=== PATIENT | male | born 1945 | race Caucasian/White ===

== ENCOUNTER → 2017-01-24 | Outpatient (CLI) | payer MEDICARE ==
[~2017-01-24] MED LIST: AMLO10TA2 PO; ASPI32ECTA PO; ATEN50TA2 PO; BENI40TA7 PO; CITA20TA4 PO; CLONI1TA PO; FLOM5CAP PO; GLIM2TAB PO; LISI-538 PO; MEGA1CAP3 PO; METF1000 PO; MULT1TAB11 PO; PLAV75TA38 PO; PRAV40TA2 PO
== END ==
LOC: M LAB 12:02
PROVIDERS: ATTEND Internal Medicine Cardiovascular Disease
DX: E78.5 Hyperlipidemia, unspecified (principal); E11.9 Type 2 diabetes mellitus without complications; N52.9 Male erectile dysfunction, unspecified; R94.31 Abnormal electrocardiogram [ECG] [EKG]

== ENCOUNTER → 2017-01-24 | Outpatient (CLI) | payer MEDICARE ==
[2017-01-24 12:39] LABS: MEAN CORPUSCULAR HEMOGLOBIN 31.8 pg (27.0-33.0); MEAN CORPUSCULAR HGB CONC 34.5 g/dl (32.0-36.5); MEAN CORPUSCULAR VOLUME 92.4 fl (80.0-96.0); RED CELL DISTRIBUTION WIDTH 13.6 % (11.5-14.5); WHITE BLOOD COUNT 6.9 K/mm3 (4.0-10.0)
[2017-01-24 12:45] LABS: INR 1.01
[2017-01-24 13:10] LABS: ANION GAP 9 MEQ/L (8-16); BLOOD UREA NITROGEN 21 MG/DL (7-18); CARBON DIOXIDE LEVEL 29 MEQ/L (21-32); CHLORIDE LEVEL 102 MEQ/L (98-107); CREATININE FOR GFR 1.11 MG/DL (0.70-1.30); GLOMERULAR FILTRATION RATE > 60.0 (>42); GLUCOSE, FASTING 150 MG/DL (83-110); POTASSIUM SERUM 4.4 MEQ/L (3.5-5.1); SODIUM LEVEL 140 MEQ/L (136-145)
--- NOTE | 2017-01-24 15:15 | REP ---
Chest two views HISTORY: Erectile dysfunction Comparison: 08/12/2016 A calcified granuloma is present in the right upper lobe. The left lung is clear. The heart is normal in size. The pulmonary vasculature is normal in appearance. The bony structure is intact. IMPRESSION: No acute disease. Signed by Neo Ortega MD 01/24/2017 03:07 P
--- NOTE | 2017-01-25 00:07 | ECGEPIP ---
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
== END ==
LOC: M LAB 11:55
PROVIDERS: ATTEND Urology
DX: N52.9 Male erectile dysfunction, unspecified (principal); R94.31 Abnormal electrocardiogram [ECG] [EKG]

== ENCOUNTER → 2017-02-20 | Day surgery (SDC) | payer MEDICARE ==
[~2017-02-20] VITALS: Ht 177.8 cm; Wt 108.9 kg
[~2017-02-20] MED LIST changes: +BACITRACIN OINT 30GM As Ordered ONE; +BACT800T5 PO; +BACTRIM 160MG/800MG DS TAB PO SCH; +BACTRIM IV 160MG-800MG/10ML VIAL (S0039) XX ONE; +GENTAMICIN 100 MG in APPROPRIATE DILUENT 1 EA IV ONE; +JANU100T PO; +KETOROLAC 60 MG/2 ML VIAL (J1885) As Ordered ONE; +LIDOCAINE 2% INJ 100 MG/5 ML SDV (FOR ANES.) As Ordered ONE; +LR 1,000 ML IV ONE; +LR 1,000 ML IV SCH; +METOCLOPRAMIDE INJ 10MG/2ML VIAL (J2765) IV PRN; +MIDAZOLAM INJ 2 MG/2 ML VIAL (J2250) As Ordered ONE; +ONDANSETRON 4MG/2ML VIAL (J2405) As Ordered ONE; +ONDANSETRON 4MG/2ML VIAL (J2405) IV PRN; +PERCOCET 5MG/325MG TAB PO PRN; +PERCOCET PO; +PHENYLephrine HCL 500 MCG/5 ML (100MCG/ML) SYRINGE (J2370) As Ordered ONE; +PROPOFOL 200 MG/20 ML VIAL As Ordered ONE; +VANCOMYCIN HCL 1,000 MG, VIAL MATE ADAPTER 1 EACH in D5W 250 ML IV ONE; +dexameTHASONE 4 MG/ML 1ML VIAL (J1100) As Ordered ONE; +ePHEDrine SULFATE 25 MG/5 ML(5MG/ML) SYRINGE As Ordered ONE; +fentaNYL 100 MCG/2 ML INJECTION (J3010) IV PRN; +fentaNYL 250 MCG/5 ML INJECTION (J3010) As Ordered ONE
[2017-02-20 18:35] VITALS: BP 147/70
--- NOTE | 2017-02-21 12:59 | RO ---
DATE OF PROCEDURE: 02/20/2017 PREOPERATIVE DIAGNOSIS: Erectile dysfunction. POSTOPERATIVE DIAGNOSIS: Erectile dysfunction. SURGERY PERFORMED: Inflatable penile implant prosthesis placement, Coloplast at 20 cm in length plus 2 cm rear tip bilaterally with a cloverleaf reservoir of 70 mL. SURGEON: Neftaly Dhillon MD USABILITY STRATEGIST: None. ANESTHESIA: General. COMPLICATIONS: None. ESTIMATED BLOOD LOSS: N/A. HISTORY OF PRESENT ILLNESS: This is a 71-year-old male patient that has severe erectile dysfunction and has consented inflatable penile implant placement. DESCRIPTION OF PROCEDURE: With the patient under general anesthesia in supine position after prepping and draping the area of concern which included the entire genitalia and abdomen. We started by placing the Holcomb catheter, 16 Serbian, and inflated the balloon to 10 mL to drain the bladder. We then proceeded to do an incision in the penoscrotal mid bandar for about 5 cm in length. Through this incision we opened the corpora cavernosa on the left after putting two stitches of Vicryl #2-0 parallel to each other, parallel to the urethra on both sides. We cut in the middle of both stitches on the right side in the corpora cavernosa and on the left side in the corpora cavernosa for a length of about 2 cm in length. We then proceeded to actively dilate with dilators the corpora cavernosa proximally up to a size of 13 and distally up to a size of 11. We then measured the corpora cavernosa. The total measurement was 22 cm on the right corpora cavernosa and the left corpora cavernosa. We then proceeded to prepare the inflatable penile implant and placed into Bactrim irrigation. We then proceeded to actively with a Madhuri, assisted with joey Dhaliwal, we placed an inflatable penile implant inside the corpora cavernosa and tested it. It inflated very well and the two implants on the right and left were at the same level. We then closed the corporotomies with #2-0 Vicryl in separate stitched and then dissected with finger dissection on the right side in the external inguinal ring inside the inguinal canal and perforating the floor of the inguinal canal and going into the Retzius space to actively place the cloverleaf reservoir. Once this was placed inside, we inflated the cloverleaf reservoir with 70 mL of normal saline. We then proceeded to actively do a sub scrotal pouch in the mid bandar to actively place the pump. We connected the tubes of the penile implant and the reservoir and then we tested the implant times two and it cycled very well. Then we closed the incision after irrigating with a #2-0 Vicryl in a running fashion and the skin with #3-0 Monocryl in a running fashion. We applied bacitracin cream, we cut the stitches to the penile implant and then did a mummy wrap around the penis and the scrotal sac. PLAN: The patient will go home today with antibiotic, Bactrim, for about 3-4 weeks and Percocet for pain. Followup at [facility] center on February 24, 2017 for removal of the drapes. He cannot have any heavy lifting. He cannot have sex for two months. No blood thinners also.
== END | disposition home or self-care (01) ==
LOC: M SDC 09:55
PROVIDERS: ATTEND Urology
DX: N52.9 Male erectile dysfunction, unspecified (principal); I25.10 Atherosclerotic heart disease of native coronary artery without angina pectoris; I10 Essential (primary) hypertension; E11.9 Type 2 diabetes mellitus without complications; Z98.61 Coronary angioplasty status; E78.5 Hyperlipidemia, unspecified; Z79.02 Long term (current) use of antithrombotics/antiplatelets; Z79.899 Other long term (current) drug therapy; M10.9 Gout, unspecified; F32.9 Major depressive disorder, single episode, unspecified
CPT/HCPCS: 36415; 54405; 86850; 86900; 86901; C1813; J1100; J1580; J1885; J2250; J2370; J2405; J3010; J3370

== ENCOUNTER → 2017-04-17 | Outpatient (REF) | payer MEDICARE ==
[~2017-04-17] MED LIST changes: +ASPI325T24 PO; -ASPI32ECTA PO; -BACITRACIN OINT 30GM As Ordered ONE; -BACTRIM 160MG/800MG DS TAB PO SCH; -BACTRIM IV 160MG-800MG/10ML VIAL (S0039) XX ONE; +BENI40TA30 PO; -BENI40TA7 PO; -GENTAMICIN 100 MG in APPROPRIATE DILUENT 1 EA IV ONE; -KETOROLAC 60 MG/2 ML VIAL (J1885) As Ordered ONE; -LIDOCAINE 2% INJ 100 MG/5 ML SDV (FOR ANES.) As Ordered ONE; -LR 1,000 ML IV ONE; -LR 1,000 ML IV SCH; -METF1000 PO; +METF10004 PO; -METOCLOPRAMIDE INJ 10MG/2ML VIAL (J2765) IV PRN; -MIDAZOLAM INJ 2 MG/2 ML VIAL (J2250) As Ordered ONE; -ONDANSETRON 4MG/2ML VIAL (J2405) As Ordered ONE; -ONDANSETRON 4MG/2ML VIAL (J2405) IV PRN; -PERCOCET 5MG/325MG TAB PO PRN; -PHENYLephrine HCL 500 MCG/5 ML (100MCG/ML) SYRINGE (J2370) As Ordered ONE; +PLAV1TAB2 PO; -PLAV75TA38 PO; -PROPOFOL 200 MG/20 ML VIAL As Ordered ONE; -VANCOMYCIN HCL 1,000 MG, VIAL MATE ADAPTER 1 EACH in D5W 250 ML IV ONE; -dexameTHASONE 4 MG/ML 1ML VIAL (J1100) As Ordered ONE; -ePHEDrine SULFATE 25 MG/5 ML(5MG/ML) SYRINGE As Ordered ONE; -fentaNYL 100 MCG/2 ML INJECTION (J3010) IV PRN; -fentaNYL 250 MCG/5 ML INJECTION (J3010) As Ordered ONE
== END ==
LOC: M SFHCLERA 17:16
PROVIDERS: ATTEND Physician Assistant
DX: M10.9 Gout, unspecified (principal)
CPT/HCPCS: 84550; G0463

== ENCOUNTER 2019-07-20 12:36 | Emergency (ER) | payer MEDICARE, OTHER ==
[~2019-07-20] VITALS: Ht 180.3 cm; Wt 107.8 kg
[~2019-07-20 12:36] MED LIST changes: -AUGM875T28 PO; -LISI20TA19; -ZYLO300T6
[2019-07-20] MEDS ORDERED: ZYLO300T6 PO (12:56)
[2019-07-20] MEDS ORDERED: LISI20TA19 (12:56)
[2019-07-20 13:50] LABS: BLOOD UREA NITROGEN 17 MG/DL (7-18); CALCIUM LEVEL 9.2 MG/DL (8.8-10.2); CARBON DIOXIDE LEVEL 28 MEQ/L (21-32); CHLORIDE LEVEL 101 MEQ/L (98-107); CREATININE FOR GFR 1.08 MG/DL (0.70-1.30); GLOMERULAR FILTRATION RATE > 60.0 (>42); GLUCOSE, FASTING 128 MG/DL (70-100); POTASSIUM SERUM 4.5 MEQ/L (3.5-5.1); SODIUM LEVEL 136 MEQ/L (136-145)
[2019-07-20] MEDS ORDERED: ISOVUE-370 76% 100ML VIAL (Q9967) As Ordered ONE (14:14)
[2019-07-20 14:35] LABS: BASO % 0.4 % (0.0-1.0); EOS # 0.2 10^3/uL (0.0-0.5); EOS % 1.6 % (0.0-3.0); HEMATOCRIT 36.1 % (42.0-52.0); HEMOGLOBIN 12.1 g/dl (13.5-17.5); LYMPH % 20.6 % (24.0-44.0); MEAN CORPUSCULAR HEMOGLOBIN 29.1 pg (27.0-33.0); MEAN CORPUSCULAR HGB CONC 33.5 g/dl (32.0-36.5); MEAN CORPUSCULAR VOLUME 86.8 fl (80.0-96.0); MONO # 1.4 10^3/uL (0.0-0.8); MONO % 14.8 % (0.0-5.0); NEUTROPHILS % 62.3 % (36.0-66.0); PLATELET COUNT, AUTOMATED 199 10^3/uL (150-450); RED BLOOD COUNT 4.16 10^6/uL (4.30-6.10); WHITE BLOOD COUNT 9.6 10^3/uL (4.0-10.0)
--- NOTE | 2019-07-20 14:56 | REP ---
Clinical: Perihilar mass. Technique: Axial contrast enhanced images from the thoracic inlet to the upper abdomen with coronal and sagittal re-formations. Findings: There is an ill-defined heterogeneously enhancing area along the medial left upper lobe measuring approximately 7.5 x 4.2 x 4.4 cm with postobstructive atelectasis and ground-glass opacities and associated mediastinal lymph nodes measuring up to 16 mm. Findings are most compatible with bronchogenic carcinoma unless proven otherwise. Tracheobronchial tree appears relatively patent. Remainder of the lung shea demonstrates mild emphysematous changes along with few scattered calcified granulomata. No pleural effusion. Atherosclerotic changes to the thoracic aorta and coronary arteries noted without aortic aneurysm or dissection. No cardiomegaly. No pericardial effusion. Evidence for prior sternotomy, CABG and coronary stenting. Limited upper abdomen demonstrates normal bilateral adrenal glands. Surrounding musculoskeletal structures without focal osseous abnormality. Impression: 1. Medial left upper lobe mass with adenopathy and postobstructive pulmonary parenchymal changes is most compatible with bronchogenic carcinoma unless proven otherwise. Electronically Signed by Michael Collado MD 07/20/2019 02:48 P
[2019-07-20] MEDS ORDERED: AUGM875T28 PO (15:31)
[2019-07-20 16:02] VITALS: BP 172/80
--- NOTE | 2019-07-20 22:44 | ECGEPIP ---
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
--- NOTE | 2019-07-21 16:23 | ED PDOC ---
Post-Departure Follow-Up vito ponce and kishan faxed formal report of ct chest for fu Rogelio Alvarenga MD Jul 21, 2019 16:23
[2019-07-27] MEDS ORDERED: BAYE325T16 PO (12:48)
[2019-07-27] MEDS ORDERED: MULTTAB86 PO (12:58)
== END 2019-07-20 16:20 | disposition home or self-care (01) ==
LOC: M ED 12:36
DX: D38.1 Neoplasm of uncertain behavior of trachea, bronchus and lung (principal); J18.8 Other pneumonia, unspecified organism; E11.9 Type 2 diabetes mellitus without complications; I10 Essential (primary) hypertension; G89.29 Other chronic pain; M54.9 Dorsalgia, unspecified; Z95.5 Presence of coronary angioplasty implant and graft; Z79.899 Other long term (current) drug therapy; Z79.84 Long term (current) use of oral hypoglycemic drugs; Z79.82 Long term (current) use of aspirin; Z91.048 Other nonmedicinal substance allergy status; Z87.891 Personal history of nicotine dependence
CPT/HCPCS: 36415; 71046; 71260; 80048; 85025; 93005; 99284; G0463; Q9967

== ENCOUNTER → 2019-07-20 | Outpatient (CLI) | payer MEDICARE, OTHER ==
[~2019-07-20] MED LIST changes: -AMLO10TA2 PO; +AMLO10TA5 PO; +ASPI-255 PO; -ASPI325T24 PO; +AUGM875T28 PO; -CITA20TA4 PO; +CITA20TA6 PO; +FLOM0.4C39 PO; -FLOM5CAP PO; -GLIM2TAB PO; +GLIM2TAB2 PO; +LISI20TA19; +ZYLO300T6
--- NOTE | 2019-07-20 11:37 | REP ---
Chest x-ray: Three views. History: Cough. Shortness of breath. Comparison chest x-ray: January 24, 2017. Findings: The patient is status post prior median sternotomy. The heart is not enlarged. There is some volume loss in the left upper lobe distribution and there is a large opacity adjacent to the left mediastinal contour consistent with mass effect. This is a change from the comparison study of 2017 and malignancy possibly with atelectasis in the left upper lobe must be suspected. There is a granulomatous calcification in the right upper lung zone unchanged. Lung shea are otherwise clear. Pleural angles are sharp. Impression: Findings suggestive of bronchogenic malignancy with some mediastinal adenopathy and volume loss in the left upper lobe. Chest CT study recommended, preferably with intravenous contrast. Electronically Signed by Jt Mills MD 07/20/2019 11:53 A
== END ==
LOC: M LRY 10:59
PROVIDERS: ATTEND Nurse Practitioner Family
DX: R91.8 Other nonspecific abnormal finding of lung field (principal); R06.02 Shortness of breath

== ENCOUNTER → 2019-07-22 | Outpatient (REF) | payer MEDICARE, OTHER ==
[~2019-07-22] MED LIST changes: +AUGM875T28 PO; +BAYE325T16 PO; +LISI20TA19; +MULTTAB86 PO; +ZYLO300T6 PO
[2019-07-22 17:10] LABS: INR 1.09; PROTHROMBIN TIME 13.9 SECONDS (11.8-14.0)
[2019-07-22 17:11] LABS: PARTIAL THROMBOPLASTIN TIME 31.6 SECONDS (25.0-38.4)
== END ==
LOC: M LAB REF 16:47
PROVIDERS: ATTEND Internal Medicine Pulmonary Disease
DX: R91.8 Other nonspecific abnormal finding of lung field (principal)

== ENCOUNTER 2019-07-28 07:19 | Day surgery (SDC) | payer OTHER ==
[~2019-07-28] VITALS: Ht 172.7 cm; Wt 105.6 kg
[~2019-07-28 07:19] MED LIST changes: +LR 1,000 ML IV ONE
[2019-07-28] MEDS ORDERED: dexameTHASONE 4 MG/ML 1ML VIAL (J1100) As Ordered ONE (08:08)
[2019-07-28] MEDS ORDERED: ROCURONIUM BROMIDE 50 MG/5 ML VIAL As Ordered ONE (08:08)
[2019-07-28] MEDS ORDERED: ONDANSETRON 4MG/2ML VIAL (J2405) As Ordered ONE (08:08)
[2019-07-28] MEDS ORDERED: LIDOCAINE 2% INJ 100 MG/5 ML SDV (FOR ANES.) As Ordered ONE (08:08)
[2019-07-28] MEDS ORDERED: PROPOFOL 200 MG/20 ML VIAL As Ordered ONE (08:08)
[2019-07-28] MEDS ORDERED: fentaNYL 250 MCG/5 ML INJECTION (J3010) As Ordered ONE (08:09)
[2019-07-28] MEDS ORDERED: MIDAZOLAM INJ 2 MG/2 ML VIAL (J2250) As Ordered ONE (08:09)
[2019-07-28] MEDS ORDERED: SUGAMMADEX SODIUM 500 MG/5 ML VIAL (BRIDION) As Ordered ONE (09:50)
[2019-07-28] MEDS ORDERED: CETACAINE SPRAY 5GM As Ordered ONE (10:02)
[2019-07-28] MEDS ORDERED: fentaNYL 100 MCG/2 ML INJECTION (J3010) IV PRN (11:00)
[2019-07-28] MEDS ORDERED: LR 1,000 ML IV SCH (11:00)
[2019-07-28] MEDS ORDERED: ONDANSETRON 4MG/2ML VIAL (J2405) IV PRN (11:00)
[2019-07-28] MEDS ORDERED: oxyCODONE 5MG TAB PO PRN (11:00)
--- NOTE | 2019-07-28 11:01 | ROOR ---
Patient Name: Baldemar Beltre Procedure Date: 07/28/2019 8:48 AM Date of : 1945 Admit Type: Outpatient Age: 73 Note Status: Finalized Attending MD: Oriana Gaffney MD Procedure: Bronchoscopy Indications: Left upper lobe mass, Hemoptysis with abnormal CXR, Hilar lymphadenopathy of the left side, Mediastinal adenopathy Providers: Oriana Gaffney MD (Doctor) Referring MD: Miguelangel Montalvo MD (Referring MD) Requesting Physician: Medicines: General Anesthesia, Cetacaine topical Complications: No immediate complications. Estimated blood loss: Minimal Procedure: Pre-Anesthesia Assessment: - Prior to the procedure, a History and Physical was performed, and patient medications and allergies were reviewed. The patient's tolerance of previous anesthesia was also reviewed. The risks and benefits of the procedure and the sedation options and risks were discussed with the patient. All questions were answered, and informed consent was obtained. Prior Anticoagulants: The patient has taken aspirin, last dose was day of procedure. ASA Grade Assessment: III - A patient with severe systemic disease. After reviewing the risks and benefits, the patient was deemed in satisfactory condition to undergo the procedure. The Bronchoscope was introduced through the mouth, via the endotracheal tube (the patient was intubated for the procedure) and advanced to the tracheobronchial tree of both lungs. The procedure was accomplished without difficulty. The patient tolerated the procedure well. Findings: Respiratory tract: The trachea is of normal caliber. The jeromy is sharp. The entire tracheobronchial tree was examined to at least the first subsegmental level except in the left upper lobe. Bronchial anatomy was normal, the bronchial mucosa showed areas of pitting and webbing; there are no endobronchial lesions and no significant secretions, except in the left upper lobe. In the left upper lobe there was an endobronchial lesion occluding the MIGUEL bronchus which was not able to be traversed. The lesion was flesh toned with an area more centrally with white/castro discoloration and dark red clot. The lesion was somewhat friable. Endobronchial biopsies of the lesion were performed in the left upper lobe using a forceps and sent for histopathology examination. An endobronchial ultrasound endoscope was utilized in order to assist with fine needle aspiration in the subcarinal area and in the left hilum. The right paratracheal lymph node was visualized but did not appear pathologically enlarged and was not sampled. Transbronchial needle aspirations of lymph nodes were performed in the subcarinal area and in the left hilum using an Olympus EBUS-TBNA 21 gauge needle and sent for routine cytology. The procedure was guided by ultrasound. Transbronchial needle aspiration technique was selected because the sampling site was not visible endoscopically. Impression: - Left upper lobe mass - Hemoptysis with abnormal CXR - Hilar lymphadenopathy of the left side - Mediastinal adenopathy - An endobronchial biopsy was performed in MIGUEL. - Endobronchial ultrasound was performed. - A transbronchial needle aspiration was performed of lymph nodes. Recommendation: - Follow up with bronchoscopist as previously scheduled. Attending Participation: I personally performed the entire procedure. Oriana Gaffney MD 07/28/2019 11:00:30 AM Number of Addenda: 0 Note Initiated On: 07/28/2019 8:48 AM
[2019-07-28 11:30] VITALS: BP 118/56
== END 2019-07-28 11:52 | disposition home or self-care (01) ==
LOC: M SDC 07:19
PROVIDERS: ATTEND Internal Medicine Pulmonary Disease
DX: C34.32 Malignant neoplasm of lower lobe, left bronchus or lung (principal); C77.1 Secondary and unspecified malignant neoplasm of intrathoracic lymph nodes; R04.2 Hemoptysis; R59.0 Localized enlarged lymph nodes; J43.9 Emphysema, unspecified; I11.9 Hypertensive heart disease without heart failure; E78.5 Hyperlipidemia, unspecified; E11.9 Type 2 diabetes mellitus without complications; M10.9 Gout, unspecified; N40.0 Benign prostatic hyperplasia without lower urinary tract symptoms; Z95.1 Presence of aortocoronary bypass graft; Z95.5 Presence of coronary angioplasty implant and graft; R04.0 Epistaxis; M17.0 Bilateral primary osteoarthritis of knee; F32.9 Major depressive disorder, single episode, unspecified; Z87.891 Personal history of nicotine dependence; Z79.899 Other long term (current) drug therapy; Z79.2 Long term (current) use of antibiotics; Z79.84 Long term (current) use of oral hypoglycemic drugs; Z79.82 Long term (current) use of aspirin; Z91.048 Other nonmedicinal substance allergy status
CPT/HCPCS: 31625; 31629; 31653; 88173; 88305; 88341; 88342; J1100; J2250; J2405; J3010

== ENCOUNTER → 2019-08-17 | Outpatient (CLI) | payer OTHER ==
[~2019-08-17] MED LIST changes: +ASPI81CH33 PO; -LR 1,000 ML IV ONE
--- NOTE | 2019-08-19 10:51 | RADONC ---
RADIATION ONCOLOGY CONSULTATION NOTE DATE: 08/17/2019 CHART NUMBER: [id number] DIAGNOSIS: Left upper lobe lung cancer. STAGE: In progress. ECOG PERFORMANCE STATUS: 0 CONSULTATION NOTE: Mr. Beltre is a very pleasant 73-year-old white male with the diagnosis of what appears to be at least a stage III A, moderate to poorly differentiated adenocarcinoma of the left upper lung who is presenting to us today to discuss the possibility of external beam radiation therapy combined with chemotherapy as a therapeutic option. HISTORY OF PRESENT ILLNESS: The patient was in his usual state of health until May of this year when he began developing some increasing shortness of breath and dyspnea on exertion, as well as a productive cough and hemoptysis. He presented to our emergency department and a chest x-ray was done on 07/20/2019 that showed a volume loss in the left upper lobe distribution as well as a large opacity adjacent to the left mediastinal contour consistent with a mass and malignancy. On 07/20/2019, the patient underwent a chest CT as well which revealed a heterogeneous enhancing area along the left medial upper lobe measuring 7.5 cm x 4.2 x 4.4 cm with post disruptive atelectasis and ground-glass opacities. There was associated mediastinal lymph nodes measuring up to 1.6 cm. On 07/28/2019, the patient underwent biopsy of his left lung mass and pathology revealed a moderate to poorly differentiated adenocarcinoma. A left hilar lymph node was also biopsied and was found positive for metastatic adenocarcinoma. Subcarinal lymph node biopsy however was negative for malignancy. The patient is scheduled for a PET CT scan tomorrow for further staging purposes. I have personally reviewed this patient's CT scan with our thoracic surgeon, Dr. Morro Navarro, to see whether or not he thought this would be a possible surgical candidate pending the results of the PET scan. After careful review Dr. Navarro clearly does not believe this is a surgical candidate. There are apparent metastatic lymph nodes in the mediastinum itself. This is clearly locally advanced disease beyond the ability to undertake resection. He is therefore being referred to us for discussion of external beam radiation therapy once again pending the results of the PET scan. ALLERGIES: The patient has NO KNOWN DRUG ALLERGIES. PAST MEDICAL HISTORY: The patient's past medical history is positive for carotid artery disease and a CABG. He had five cardiac stents placed. He has had penile implants. He has a history of liver disease. In addition, the patient has hypertension, diabetes, gout, coronary artery disease. SOCIAL HISTORY: The patient has smoked three packs of cigarettes per day for 30 years for a 90 pack-year smoking history. He quit in 1998. He does not abuse alcohol. FAMILY HISTORY: The patient's family history is positive for a father with some kind of cancer. REVIEW OF SYSTEMS: The patient's review of systems is noncontributory. Denies nausea, vomiting, fevers, chills, night sweats, diplopia, headaches, anxiety or depression, anorexia, weight loss, visual disturbances, chest pain, urinary or bowel difficulties, bone pain, or neurological problems. PULMONARY FUNCTION TESTS: The patient's FEV-1 is 2.35. PHYSICAL EXAMINATION: The patient is a well-developed, well-nourished male in no acute distress. HEENT exam is normocephalic, atraumatic. Extraocular movements are intact. There is no palpable cervical, supraclavicular, infraclavicular, axillary, or inguinal lymphadenopathy present. Lungs are clear to auscultation and percussion. Heart has a regular rate and rhythm. Abdomen is benign with no hepatosplenomegaly, masses, or tenderness. Rectal examination reveals a normal anal sphincter tone. Skeletal examination reveals no tenderness to pressure or percussion of the bony skeleton. Extremities reveal no clubbing, cyanosis, or edema. Neurologic exam is grossly intact, as is the remainder of the physical examination. ASSESSMENT: I had a lengthy discussion with this patient and his . Clearly at this point, we are still undergoing initial staging and we await the PET scan results which will be done tomorrow. If indeed this disease is localized, then I do believe he should be a candidate for external beam radiation therapy combined with chemotherapy as a therapeutic option. I discussed with the patient in detail the potential benefits as well as possible acute and chronic sequelae of external beam radiation therapy. We discussed the logistics of treatment planning, simulation and subsequent fractionated daily radiation treatments. I have tentatively set this patient up for a simulation and initiation of treatment planning. We will closely coordinate his care with his medical oncologist as well. Once again, we await the final PET scan which is to be done tomorrow. Clearly final recommendations will be made once the PET scan is completed. Thank you for allowing us to participate in the care of this very pleasant gentleman. If I could be of any further assistance or provide you with any information, please free to contact me anytime. As always, warm regards. cc: MD Vaishali Justice MD Vivian Keenan, MD
== END ==
LOC: M ONCR 13:07
PROVIDERS: ATTEND Radiology Radiation Oncology
DX: C34.12 Malignant neoplasm of upper lobe, left bronchus or lung (principal); I65.29 Occlusion and stenosis of unspecified carotid artery; I25.709 Atherosclerosis of coronary artery bypass graft(s), unspecified, with unspecified angina pectoris; Z87.891 Personal history of nicotine dependence

== ENCOUNTER → 2019-08-18 | Outpatient (CLI) | payer OTHER ==
--- NOTE | 2019-08-20 14:18 | REP ---
PET/CT: HISTORY: Adenocarcinoma of the lung. Staging. Left upper lobe malignant neoplasm. COMPARISONS: Comparison chest CT, July 20, 2019. TECHNIQUE: 54 minutes following the intravenous injection of a 7.43 mCi dose of F-18 FDG, three-dimensional PET scintigraphy is acquired from the skull base to the proximal thighs. Triplanar noncontrast CT scanning is acquired through the same anatomic range for attenuation correction, and image registration with scan parameters optimized to minimize radiation exposure to the patient. PET scintigraphy and CT datasets were fused and displayed on a workstation with multiplanar and projection display capability. PET/CT FINDINGS: Head and neck soft tissues are unremarkable. The large left upper lobe and paramediastinal soft tissue mass noted on recent chest CT study is markedly hypermetabolic. Maximum standard uptake value within this large lesion ranges up to 24.33. Hypermetabolic aorticopulmonary region lymphadenopathy is seen in a 2.1 cm lymph node with maximum standard uptake value 19.7. There is equivocal uptake in a normal-sized subcentimeter right paratracheal lymph node in the superior mediastinum where maximum standard uptake value is 2.84. No abnormal pulmonary parenchymal uptake is seen. There is postobstructive change in the left upper lobe as seen on recent CT study. No abnormal hypermetabolic uptake is seen in either adrenal gland. No abnormal abdominal or pelvic hypermetabolic uptake is seen. IMPRESSION: The large left upper lobe lung mass is markedly hypermetabolic. There is a left AP window lymph node in the mediastinum which is hypermetabolic. Equivocal uptake is seen in a subcentimeter right paratracheal lymph node just below the thoracic inlet. No abnormal uptake is seen below the diaphragms. Electronically Signed by Jt Mills MD 08/21/2019 09:51 A
== END ==
LOC: M PLARAD 13:37
PROVIDERS: ATTEND Internal Medicine Pulmonary Disease
DX: C34.12 Malignant neoplasm of upper lobe, left bronchus or lung (principal); R59.0 Localized enlarged lymph nodes
CPT/HCPCS: 78815; A9552

== ENCOUNTER → 2019-09-07 | Outpatient (CLI) | payer OTHER ==
[~2019-09-07] MED LIST changes: +LIDOCAINE W/EPINEPHRINE 1% 20ML VIAL As Ordered ONE; +MAGN200T PO; +MIDAZOLAM INJ 2 MG/2 ML VIAL (J2250) As Ordered ONE; +ONDA8TAB7 PO; +ONDA8TAB8 PO; +PROC10TA4 PO; +ceFAZolin 1GM INJ (J0690 PER 500MG) As Ordered ONE; +fentaNYL 100 MCG/2 ML INJECTION (J3010) As Ordered ONE
--- NOTE | 2019-09-07 14:02 | ROOPDOC ---
[facility] Report Of Operation Report of Operation DATE OF PROCEDURE: 09/07/19 PREPROCEDURE DIAGNOSES: Lung cancer requiring IV access POSTPROCEDURE DIAGNOSES: Same PROCEDURE: 1. Ultrasound-guided access right internal jugular vein 2. Placement of 23 cm tunneled port right IJ SURGEON: Zaria Guevara MD ANESTHESIA: Local anesthesia 14 mL lidocaine with epi. Moderate intravenous conscious sedation was supervised by Dr. Guevara. The patient was independently monitored by registered nurse under the department of radiology using automated blood pressure, EKG, pulse oximetry. The detailed sedation record is probably stored in the hospital information system. Following is the brief sedation record: Start time 13:08, stop time 13:47, fentanyl 50 g IV, Versed 1 mg IV, Ancef 2 g IV. INDICATION FOR PROCEDURE: Mr. Beltre is a very pleasant 74-year-old gentleman with lung cancer requires port placement for chemotherapy, blood draws, IV fluids, IV medications. Risks benefits and alternatives were explained to the patient he was agreeable to proceed. Informed consent was obtained. INTERPRETATION: Final imaging shows the port to be in good position in the right chest with the catheter freely mobile at the right atrium and no kinks in the catheter. There is no pneumothorax. REPORT OF OPERATION: Patient was brought to the angiographic suite in stable condition. His right neck and chest were prepped and draped in a sterile fashion. A timeout was performed. Sedation was administered without complication. Local anesthesia was administered to the skin and subcutaneous tissue over the right jugular access site, down towards the clavicle, over the clavicle into the right chest for incision and pocket placement for the port. Microneedle was used to access the jugular vein under ultrasound guidance. A wire was passed through this access into the central system under fluoroscopic guidance. A micro-sheath was placed over the wire and the wire was exchanged for a J-wire into the central system under fluoroscopic guidance. We then placed a peel-away sheath over the wire. A small incision was made on the right chest and blunt dissection was used to create a pocket distal to this for the port. The port was then placed within the pocket and found to be a good fit. We then tunneled the catheter from the pocket to the jugular access site and cut the catheter to 23 cm. Following this, the tunneler was removed and the port catheter was advanced through the peel-away sheath into the central system in the peel-away sheath was removed. Initial imaging showed that the catheter was mildly kinked at the jugular access site. We manipulated the tissues in order to create a gentle curve in the catheter. Following this, we accessed the port and found at the port tom back and flushed easily. We heparin locked the port. The jugular access site and the port pocket were copiously irrigated with saline. Final imaging confirmed that the port was in good position with no case in the catheter and the tip freely mobile and the right atrium. There was no pneumothorax. We closed the jugular access site with too deep interrupted Vicryl sutures and one superficial interrupted Monocryl suture and Dermabond at the skin. We closed the port pocket after an additional irrigation with normal saline with 2 layers of running Vicryl suture and the skin was closed with a running subcuticular Monocryl suture. Steri-Strips and Mastisol replace the length of the incision as a final dressing. The patient was then taken back to recovery in stable condition. There were no complications and the patient tolerated the procedure and the sedation well. ESTIMATED BLOOD LOSS: Approximately 5 mL. COMPLICATIONS: None. PLAN: It is okay to use the port for IV fluids, blood draws, IV medications, chemotherapy. Okay to resume all home medications. ZARIA GUEVARA MD Sep 07, 2019 14:02
[2019-09-07 15:30] VITALS: BP 124/56
== END ==
LOC: M IRPRO 11:04
PROVIDERS: ATTEND Internal Medicine Hematology & Oncology
DX: C34.90 Malignant neoplasm of unspecified part of unspecified bronchus or lung (principal)
CPT/HCPCS: 36561; 99152; 99153; C1788; C1894; J0690; J2250; J3010

== ENCOUNTER → 2019-09-21 | Outpatient (RCR) | payer OTHER ==
[2019-09-08 14:30] LABS: BASO % 0.3 % (0.0-1.0); EOS # 0.2 10^3/uL (0.0-0.5); EOS % 2.1 % (0.0-3.0); HEMOGLOBIN 11.4 g/dl (13.5-17.5); LYMPH # 2.1 10^3/uL (1.5-5.0); LYMPH % 23.5 % (24.0-44.0); MEAN CORPUSCULAR HEMOGLOBIN 27.7 pg (27.0-33.0); MEAN CORPUSCULAR HGB CONC 32.6 g/dl (32.0-36.5); MEAN CORPUSCULAR VOLUME 85.2 fl (80.0-96.0); MONO # 1.2 10^3/uL (0.0-0.8); MONO % 13.8 % (0.0-5.0); NEUTROPHILS # 5.4 10^3/uL (1.5-8.5); PLATELET COUNT, AUTOMATED 234 10^3/uL (150-450); RED BLOOD COUNT 4.11 10^6/uL (4.30-6.10)
--- NOTE | 2019-09-10 15:26 | RADONC ---
RADIATION ONCOLOGY SIMULATION NOTE: DATE: 09/08/2019 CHART NUMBER: [id number] Mr. Beltre was taken to the CT scan for CT simulation of his lung field. CT was accomplished without difficulty or discomfort. Radiation treatment planning is underway and radiation treatments will begin subsequently. An immobilization device was created and be used out throughout the course of treatment. It was created without difficulty or discomfort. I was physically present throughout the course of CT simulation.
[~2019-09-21] MED LIST changes: -LIDOCAINE W/EPINEPHRINE 1% 20ML VIAL As Ordered ONE; -MIDAZOLAM INJ 2 MG/2 ML VIAL (J2250) As Ordered ONE; -ceFAZolin 1GM INJ (J0690 PER 500MG) As Ordered ONE; -fentaNYL 100 MCG/2 ML INJECTION (J3010) As Ordered ONE
== END ==
LOC: M ONCR 09-08 13:36
PROVIDERS: ATTEND Radiology Radiation Oncology
DX: C34.12 Malignant neoplasm of upper lobe, left bronchus or lung (principal)

== ENCOUNTER → 2019-10-01 | Outpatient (CLI) | payer MEDICARE, OTHER ==
[~2019-10-01] MED LIST changes: -GLIM2TAB2 PO; +GLIM2TAB4 PO; +LEVA1TAB2 PO; +ONDA8TAB10 PO; -ONDA8TAB7 PO; +PROHANCE 279.3MG/ML 5ML VIAL (A9576) As Ordered ONE
--- NOTE | 2019-10-01 09:04 | REP ---
INDICATION: Lung CA restaging. PROCEDURE: MRI of the brain with and without contrast. Multiplanar T1, T2, FLAIR and post contrast images obtained. COMPARISON STUDIES: No recent prior similar studies FINDINGS: There is no evidence of restricted diffusion to suggest acute infarction. No gradient-echo susceptibility to suggest hemorrhage. The ventricles and extra-axial CSF spaces are within normal limits. No mass effect or midline shift. No abnormal fluid collections. There is a small nodular enhancement at the left occipital lobe, immediately subcortical. This is seen to enhance but also seen on the FLAIR images. There is no mass effect or midline shift. No abnormal fluid collections. No additional definite nodules are seen. There are scattered nonspecific white matter changes. IMPRESSION: Small, 2-3 mm, nodular enhancement in the left occipital lobe, given the patient history, is concerning for a metastatic lesion. Electronically Signed by Raphael Escobar MD 10/01/2019 08:55 A
== END ==
LOC: M RAD 07:35
PROVIDERS: ATTEND Internal Medicine Hematology & Oncology
DX: C34.92 Malignant neoplasm of unspecified part of left bronchus or lung (principal)
CPT/HCPCS: 70553; A9576

== ENCOUNTER → 2019-10-22 | Outpatient (RCR) | payer OTHER, MEDICARE ==
--- NOTE | 2019-09-28 06:55 | RADONC ---
RADIATION ONCOLOGY PROGRESS NOTE DATE: 09/27/2019 CHART NUMBER: [id number] Mr. Beltre is presently a dose of 900 cGy to his left lung and is tolerating treatments quite well at this point with no complaints related to his radiation therapy. He is having no difficulty swallowing or pain. REVIEW OF SYSTEMS: The patient's review of systems is noncontributory. He denies nausea, vomiting, fevers, chills, night sweats, diplopia, headaches, anxiety or depression, anorexia, weight loss, visual disturbances, chest pain, urinary or bowel difficulties, bone pain or neurological problems. PHYSICAL EXAMINATION: The patient's skin shows no evidence of moist or dry desquamation. The remainder of his physical exam remains unchanged. Mr. Beltre is tolerating treatments quite well and radiation will continue as scheduled.
--- NOTE | 2019-10-05 08:36 | RADONC ---
RADIATION ONCOLOGY PROGRESS NOTE DATE: 10/04/2019 CHART #: [id number] Mr. Beltre is presently at a dose of 1800 cGy to his left lung and is tolerating treatments quite well at this point with no complaints related to his radiation therapy. He had been coughing up some green sputum and he is now started on antibiotics consisting of Levaquin. REVIEW OF SYSTEMS: The patient's review of systems is noncontributory. Denies nausea, vomiting, fevers, chills, night sweats, diplopia, headaches, anxiety or depression, anorexia, weight loss, visual disturbances, chest pain, urinary or bowel difficulties, bone pain, or neurological problems. PHYSICAL EXAMINATION: The patient's skin is in good condition with no evidence of radiation change present. The remainder of his physical exam remains unchanged. Mr. Beltre is tolerating treatments quite well and radiation will continue as scheduled.
--- NOTE | 2019-10-11 11:25 | RADONC ---
RADIATION ONCOLOGY PROGRESS NOTE DATE OF SERVICE: 10/11/2019 CHART NUMBER: [id number] Mr. Beltre is presently a dose of 2700 cGy to his left lung and is tolerating treatments quite well at this point with no difficulties related to his radiation therapy. He is having no significant difficulties related to his radiation therapy. No increased difficulty breathing or swallowing. The patient's review of systems is positive for some fullness in his throat but is otherwise noncontributory. Denies nausea, vomiting, fevers, chills, night sweats, diplopia, headaches, anxiety or depression, anorexia, weight loss, visual disturbances, chest pain, urinary or bowel difficulties, bone pain, or neurological problems. PHYSICAL EXAMINATION: The patient's skin is in good condition with no evidence of radiation change present. There is no moist or dry desquamation. The remainder as physical exam remains unchanged. Mr. Beltre is tolerating treatments quite well. and radiation will continue as scheduled.
[~2019-10-22] MED LIST changes: +CIPR-249 PO; +PRIL20TA2 PO; -PROHANCE 279.3MG/ML 5ML VIAL (A9576) As Ordered ONE; +SUCR1SS PO
== END ==
LOC: M ONCR 09-23 11:14
PROVIDERS: ATTEND Radiology Radiation Oncology
DX: C34.12 Malignant neoplasm of upper lobe, left bronchus or lung (principal)

== ENCOUNTER 2019-11-04 08:51 | Outpatient (RCR) | payer OTHER, MEDICARE ==
--- NOTE | 2019-10-25 12:41 | RADONC ---
RADIATION ONCOLOGY PROGRESS NOTE DATE: 10/25/2019 CHART NUMBER: [id number] Mr. Beltre is presently at a dose of 4140 cGy to his left lung and is tolerating treatments quite well at this point with no complaints related to his radiation therapy. He is having no difficulty swallowing or other problems. The patient reports that he had his gamma knife radiosurgery to the brain lesion last week and did quite well with it. He is scheduled for two more followup visits in [place]. The patient's review of systems is noncontributory. He denies nausea, vomiting, fevers, chills, night sweats, diplopia, headaches, anxiety or depression, anorexia, weight loss, visual disturbances, chest pain, urinary or bowel difficulties, bone pain, or neurological problems. PHYSICAL EXAMINATION: The patient's skin is in good condition with no evidence of moist or dry desquamation. The remainder of his physical exam remains unchanged. Mr. Beltre is tolerating treatments quite well and radiation will continue as scheduled.
--- NOTE | 2019-11-01 10:51 | RADONC ---
DATE OF SERVICE: 11/01/2019 CHART NUMBER: [id number] Mr. Beltre has the diagnosis of left lung cancer. So far he has received dose of 5400 cGy. He is tolerating treatment quite well without any complaints. He has mild difficulty of swallowing and he has productive cough producing thick yellow sputum. SYSTEMIC REVIEWS: Noncontributory. He denies nausea or vomiting, fever, chills, night sweats or weight loss. He has no urinary or bowel difficulties or bone pain. PHYSICAL EXAMINATION: He is in good general condition. There is mild erythematous changes in left anterior chest. Lungs are clear. Overall he is tolerating treatment well and radiation therapy will continue as planned. MTDD
--- NOTE | 2019-11-05 16:03 | MEDONCLTR ---
DATE OF SERVICE: 11/04/2019 CHART NUMBER: [id number] DIAGNOSIS: Non-small cell CA of the left lung. HISTORY OF PRESENT ILLNESS: Mr. Mcdermott is a 74-year-old white male who carries a diagnosis of stage III moderately to poorly differentiated adenocarcinoma of the left upper lung. He was recommended simultaneous chemoradiation therapy. He received a dose of 6000 cGy in 30 fractions utilizing 3D confirmal technic with 15 MV photon beams. from 09/20/2019 to 11/04/2019 in 45 elapsed days. His treatment was uneventful. He has no significant side effect. There are no noticeable skin changes. I advised continuous followup care with the physicians involved and he was also asked to return her in 1 month for followup. DD: Blanca Simmons MD 11/04/2019 11:36 A DT: erika 11/05/2019 03:51 P CC: GEOFF
== END 2019-11-20 ==
LOC: M ONCR 08:51
PROVIDERS: ATTEND Radiology Radiation Oncology
DX: C34.12 Malignant neoplasm of upper lobe, left bronchus or lung (principal)

== ENCOUNTER 2019-11-08 08:54 | Outpatient (RCR) | payer MEDICARE, OTHER ==
[2019-08-16 09:37] VITALS: BP 118/64
--- NOTE | 2019-08-17 15:25 | MEDONC ---
ONCOLOGY CONSULTATION NOTE DATE OF SERVICE: 08/16/2019 REASON FOR CONSULTATION: Lung cancer. HISTORY OF PRESENT ILLNESS: This is a 73-year-old male patient who has a past medical history of coronary artery disease, status post coronary artery bypass graft (CABG) surgery in 1998, hypertension, hyperlipidemia, diabetes, gastroesophageal reflux disease (GERD), presents with progressive shortness of breath and coughing. At this point, CT scan of the chest was done and it showed the presence of left upper lobe mass 7.5 x 4.2 x 4.4. The mass obstructing the left upper lobe bronchi and causing some postobstructive atelectasis and ground glass opacity in the left upper lobe, also looks like he had some adenopathy. The bronchoscopy with fine needle aspiration was done on 07/28/2019. The bronchoscopy was noted to have obstructive lesion in the left upper lobe of bronchi, which was unable to pass the bronchoscopy. There were also some residual lesions that were fairly friable. He had biopsy of the lesion performed and the pathology reported that immunochemistry stain for the left lung lesion was somewhat inclusive as the P63 and GTF1 were negative. He also had CD7 and CD20 testing that was negative. CDX2 was also negative. Given the pathology, however, the appearance of endobronchial lesion in the absence of any primary elsewhere it is diagnosed as adenocarcinoma of the lung. Fine needle aspiration of a left hilar lymph node was positive for metastatic adenocarcinoma. His subcarinal lymph nodes fine needle aspiration was negative for malignancy. As per staging, he is stage III A of adenocarcinoma of the lung. SOCIAL HISTORY: Positive for smoking, he stopped in 1998. FAMILY HISTORY: The family history is negative. SOCIAL HISTORY: As described above. PHYSICAL EXAMINATION: Normal vitals. CHEST: Normal breath sounds. Occasional wheezes. HEART: Normal S1, S2. No murmurs. ABDOMEN: No tenderness or rigidity. No organomegaly. LABORATORIES: Done on 07/20/2019 showed white count 9.6, hemoglobin 12.1, hematocrit of 36.1 and platelet count of 199. Sodium 136, potassium 4.5, chloride 101, carbon dioxide 28. BUN 17, creatinine 1.8. Normal kidney function and liver function. ASSESSMENT AND PLAN: 1. Stage III A adenocarcinoma of the lung. The patient is going to have a PET scan this week for confirmation of the staging. Also, he is going to be seen by radiation oncology tomorrow. I discussed the case with radiation oncology and the patient is going to be discussed in the tumor board for the best treatment option. Surgery versus radiation and chemotherapy as the patient may be a candidate for surgery; however, he has to be cleared medically. The patient is going to be seen in 2 weeks and during this time we are going to obtain all the information, also the results of the PET scan and the treatment decision will be done accordingly. Electronically Signed by Jonathan Montiel MD 08/17/2019 04:36 P DD: Jonathan Montiel MD 08/16/2019 11:30 A DT: [email or web address] 08/17/2019 02:55 P CC:
[2019-08-30 09:11] VITALS: BP 118/64
[2019-08-30 10:35] LABS: INR 1.06; PARTIAL THROMBOPLASTIN TIME 29.2 SECONDS (25.0-38.4); PROTHROMBIN TIME 13.5 SECONDS (11.8-14.0)
--- NOTE | 2019-08-31 08:50 | MEDONC ---
DATE OF SERVICE: 08/30/2019 REASON FOR VISIT: Followup of lung cancer for further evaluation and management. HISTORY OF PRESENT ILLNESS: This is a 73-year-old male patient who has a past history of coronary artery disease, status post coronary artery bypass graft, coronary artery bypass graft (CABG) surgery in 1998, hypertension, hyperlipidemia, diabetes, gastroesophageal reflux disease (GERD). The patient presented with progressive shortness of breath and coughing. CT scan of the chest showed left upper lobe mass measuring 7.5 x 4.2 x 4.4 cm. The mass is obstructing the left upper lobe bronchi and causing postobstructive atelectasis and ground glass opacity in the left upper lobe, also looks like he has some adenopathy. The bronchoscopy with fine needle aspiration was done on 07/28/2019. The bronchoscope showed to have obstructive lesion in the left upper lobe of bronchi, which was unable to mass the bronchoscope. He has a biopsy of the lesion performed and the pathology report showed that for the left lung lesion was somewhat inclusive as the P63 and GTF1 were negative. Give the pathology, however, the appearance of endobronchial lesion in the absence of any primary elsewhere it is diagnosed as adenocarcinoma of the lung. Fine needle aspiration of the left hilar lymph node was also positive for metastatic adenocarcinoma. The patient has stage IIIA adenocarcinoma of the left lung. SOCIAL HISTORY: Positive for smoking. He stopped smoking in 1998. FAMILY HISTORY: Negative. Vital signs: Weight 105.6 kg, BSA 2.31 m2, temperature 97.8, pulse 103 per minute, blood pressure 118/64, pulse oximetry 93% at room air. ASSESSMENT AND PLAN: 1. Stage IIIA adenocarcinoma of the lung. The patient had a PET/CT scan which showed the cancer is localized to the left lung. There is on distant metastases. The patient said that he is not a candidate for surgery because of the tumor location, thick blood vessels in the chest, it is inoperable. The patient will be seen by the radiation oncologist. The plan is to give concurrent radiation and chemotherapy with weekly Taxol and carboplatinum. After concurrent radiation and chemotherapy the patient will be started on durvalumab immunotherapy. The patient verbalized understanding and he would like to undergo the treatment plan outlined. We will send him to interventional radiologist to put in infusion port for chemotherapy. After radiation oncologist has been evaluated we will start together on concurrent chemoradiotherapy. Electronically Signed by Aissatou Small MD 09/11/2019 03:29 P DD: Aissatou Small MD 08/30/2019 06:32 P DT: noah 08/31/2019 07:52 A CC:
[2019-09-20 11:58] VITALS: BP 112/61
[2019-09-20 12:06] LABS: BASO % 0.3 % (0.0-1.0); EOS # 0.2 10^3/uL (0.0-0.5); EOS % 2.5 % (0.0-3.0); HEMATOCRIT 33.1 % (42.0-52.0); HEMOGLOBIN 10.9 g/dl (13.5-17.5); LYMPH # 1.6 10^3/uL (1.5-5.0); LYMPH % 18.5 % (24.0-44.0); MEAN CORPUSCULAR HEMOGLOBIN 27.9 pg (27.0-33.0); MEAN CORPUSCULAR HGB CONC 32.9 g/dl (32.0-36.5); MEAN CORPUSCULAR VOLUME 84.9 fl (80.0-96.0); MONO # 1.2 10^3/uL (0.0-0.8); MONO % 13.6 % (0.0-5.0); NEUTROPHILS # 5.6 10^3/uL (1.5-8.5); NEUTROPHILS % 64.6 % (36.0-66.0); PLATELET COUNT, AUTOMATED 212 10^3/uL (150-450); WHITE BLOOD COUNT 8.7 10^3/uL (4.0-10.0)
[2019-09-20 12:27] LABS: ALBUMIN 3.1 GM/DL (3.2-5.2); ALT/SGPT 28 U/L (12-78); BILIRUBIN,TOTAL 0.6 MG/DL (0.2-1.0); BLOOD UREA NITROGEN 23 MG/DL (7-18); CALCIUM LEVEL 8.9 MG/DL (8.8-10.2); CARBON DIOXIDE LEVEL 25 MEQ/L (21-32); CHLORIDE LEVEL 101 MEQ/L (98-107); CREATININE FOR GFR 1.18 MG/DL (0.70-1.30); GLOMERULAR FILTRATION RATE > 60.0 (>42); GLUCOSE, FASTING 208 MG/DL (70-100); POTASSIUM SERUM 4.1 MEQ/L (3.5-5.1); SODIUM LEVEL 135 MEQ/L (136-145); TOTAL PROTEIN 7.3 GM/DL (6.4-8.2)
--- NOTE | 2019-09-20 12:33 | ONC.PHACK ---
CHEMO ADMIN CHECKLIST Order Contains Pt ID: Name, Order on Chemo Order Form?: Yes Order Form Includes ALL: Correct Tx Day, Correct Date, Correct Cycle Number Pt ID on Order form Matches: Pt ID on PHA Label Med on Chemo OrderForm Matches: PHA Label, Med Used for Preparation [facility] Sep 20, 2019 12:33
[2019-09-27 12:15] VITALS: BP 125/65
[2019-09-27 12:22] LABS: BASO % 0.5 % (0.0-1.0); EOS # 0.2 10^3/uL (0.0-0.5); HEMATOCRIT 34.7 % (42.0-52.0); HEMOGLOBIN 11.2 g/dl (13.5-17.5); LYMPH # 1.1 10^3/uL (1.5-5.0); LYMPH % 20.6 % (24.0-44.0); MEAN CORPUSCULAR HEMOGLOBIN 27.5 pg (27.0-33.0); MEAN CORPUSCULAR HGB CONC 32.3 g/dl (32.0-36.5); MEAN CORPUSCULAR VOLUME 85.3 fl (80.0-96.0); MONO # 0.7 10^3/uL (0.0-0.8); MONO % 13.4 % (0.0-5.0); NEUTROPHILS # 3.4 10^3/uL (1.5-8.5); NEUTROPHILS % 60.6 % (36.0-66.0); PLATELET COUNT, AUTOMATED 221 10^3/uL (150-450); RED BLOOD COUNT 4.07 10^6/uL (4.30-6.10); WHITE BLOOD COUNT 5.5 10^3/uL (4.0-10.0)
[2019-09-27 12:54] LABS: ALT/SGPT 31 U/L (12-78); BILIRUBIN,TOTAL 0.4 MG/DL (0.2-1.0); BLOOD UREA NITROGEN 19 MG/DL (7-18); CALCIUM LEVEL 9.2 MG/DL (8.8-10.2); CARBON DIOXIDE LEVEL 29 MEQ/L (21-32); CHLORIDE LEVEL 100 MEQ/L (98-107); CREATININE FOR GFR 1.09 MG/DL (0.70-1.30); GLOMERULAR FILTRATION RATE > 60.0 (>42); GLUCOSE, FASTING 139 MG/DL (70-100); POTASSIUM SERUM 4.4 MEQ/L (3.5-5.1); SODIUM LEVEL 137 MEQ/L (136-145); TOTAL PROTEIN 7.1 GM/DL (6.4-8.2)
--- NOTE | 2019-09-27 13:47 | ONC.PHACK ---
CHEMO ADMIN CHECKLIST Order Contains Pt ID: Name, Order on Chemo Order Form?: Yes Order Form Includes ALL: Correct Tx Day, Correct Date, Correct Cycle Number Pt ID on Order form Matches: Pt ID on PHA Label Med on Chemo OrderForm Matches: PHA Label, Med Used for Preparation [facility] Sep 27, 2019 13:47
[2019-09-27] MEDS: CARBOplatin 230 MG in NS 250 ML IV ONE ×2 (15:45→15:59)
[2019-09-29 08:11] VITALS: BP 111/72
[2019-10-04 10:09] LABS: BASO % 0.2 % (0.0-1.0); EOS # 0.1 10^3/uL (0.0-0.5); EOS % 2.4 % (0.0-3.0); HEMATOCRIT 32.1 % (42.0-52.0); HEMOGLOBIN 10.6 g/dl (13.5-17.5); LYMPH # 0.8 10^3/uL (1.5-5.0); LYMPH % 17.5 % (24.0-44.0); MEAN CORPUSCULAR HEMOGLOBIN 27.8 pg (27.0-33.0); MEAN CORPUSCULAR VOLUME 84.3 fl (80.0-96.0); MONO # 0.7 10^3/uL (0.0-0.8); MONO % 14.4 % (0.0-5.0); NEUTROPHILS # 2.9 10^3/uL (1.5-8.5); NEUTROPHILS % 64.4 % (36.0-66.0); PLATELET COUNT, AUTOMATED 183 10^3/uL (150-450); RED BLOOD COUNT 3.81 10^6/uL (4.30-6.10); WHITE BLOOD COUNT 4.5 10^3/uL (4.0-10.0)
[2019-10-04 10:10] VITALS: BP 112/55
[2019-10-04 10:38] LABS: ALT/SGPT 32 U/L (12-78); BILIRUBIN,TOTAL 0.5 MG/DL (0.2-1.0); BLOOD UREA NITROGEN 19 MG/DL (7-18); CARBON DIOXIDE LEVEL 27 MEQ/L (21-32); CHLORIDE LEVEL 102 MEQ/L (98-107); CREATININE FOR GFR 1.12 MG/DL (0.70-1.30); GLOMERULAR FILTRATION RATE > 60.0 (>42); GLUCOSE, FASTING 140 MG/DL (70-100); POTASSIUM SERUM 4.3 MEQ/L (3.5-5.1); SODIUM LEVEL 136 MEQ/L (136-145); TOTAL PROTEIN 6.9 GM/DL (6.4-8.2)
--- NOTE | 2019-10-04 11:12 | ONC.PHACK ---
CHEMO ADMIN CHECKLIST Order Contains Pt ID: Name, Order on Chemo Order Form?: Yes Order Form Includes ALL: Correct Tx Day, Correct Date, Correct Cycle Number Pt ID on Order form Matches: Pt ID on PHA Label Med on Chemo OrderForm Matches: PHA Label, Med Used for Preparation [facility] Oct 04, 2019 11:12
--- NOTE | 2019-10-04 14:12 | MEDONC ---
DATE OF SERVICE: 10/01/2019 REASON FOR FOLLOWUP: Lung cancer. DIAGNOSIS AND TREATMENT HISTORY: Per prior notes. Stage III adenocarcinoma left lung. - 07/2019 presented with SOB, CT chest - MIGUEL mass, 7.5 x 4.2 x 4.4 cm, obstructing MIGUEL bronchi, causing postobstructive atelectasis, ground glass opacity, MIGUEL with adenopathy. - 07/28/19 FNA. Bronchoscopy revealed obstructive lesion MIGUEL bronchi. - 07/28/19 left lung lesion biopsy moderately to poorly differentiated adenocarcinoma, left hilar LN metastatic adenocarcinoma. - 08/18/19 PET scan MIGUEL, hypermetabolic, SUV 23.3, AP window hypermetabolic LAD of 2.1 cm, SUV 19.7, equivocal normal size sub cm right paratracheal LN superior mediastinal SUV 2.84. No other abnormal hypermetabolic uptake. 09/03/19 commenced concurrent chemotherapy, carboplatin/Taxol with radiation. INTERVAL HISTORY: I met the patient for the first time today. He is in his second week of concurrent chemoradiation which he states he has tolerated well to date without any issues with nausea or vomiting. No GI complaints. No burning or difficulty with swallowing. On further questioning, for past 10 days or so he has developed a cough with yellow productive sputum. Denies any coughing up of blood. Has a good appetite and sleep, no weight loss. No pain or bleeding at any site. Reports no other complaints. REVIEW OF SYSTEMS: Constitutional: No fevers, no chills, no night sweats, no fatigue, no malaise, no weight loss. Cardiopulmonary: No chest pain, no SOB, no palpitations, no dizziness. No hemoptysis. Gastrointestinal: No pain, no nausea, no vomiting, no constipation, no diarrhea. No hematemesis, no melena, no hematochezia. Genitourinary: No dysuria, no hematuria, no incontinence, no frequency, no urgency. Musculoskeletal: No bony, no muscle, no joint aches. LINE OPERATOR: No tingling, no weakness, no numbness, no headaches, no dizziness, no seizures, no speech, no visual disturbances, All other systems, are negative unless otherwise specified in HPI. PAST MEDICAL HISTORY: CAD - CABG. Hypertension. Hyperlipidemia. Diabetes. GERD. MEDICATIONS: Reviewed in EMR. ALLERGIES: NKDA. VITAL SIGNS: Reviewed in EMR - stable. PHYSICAL EXAM: HEENT: Oral mucosa - pink and moist, no conjunctival pallor, sclera anicteric bilaterally. LYMPHATICS: No cervical, supraclavicular, axillary or inguinal LAD. LUNGS: Clear to auscultation bilaterally, resonant to percussion bilaterally. HEART: Regular rhythm, no murmurs, no S3/S4, no rubs. ABDOMEN: Soft, nontender, bowel sounds normoactive, no hepatosplenomegaly. EXTREMITIES: No edema bilaterally. Calves, nontender bilaterally. SKIN/NAILS: No nail changes. No petechiae/ecchymosis or other skin changes. MUSCULOSKELETAL: Spine nontender to palpation. INVESTIGATIONS: Review in EMR. ASSESSMENT/PLAN: 1. Stage III adenocarcinoma left lung - diagnosis and treatment history as above. Currently on carboplatin/Taxol with concurrent radiation. The patient is tolerating the above regimen without any prohibitive or untoward side effects. I recommended he should have brain imaging. He was agreeable to an MRI- order written. CBC - mild stable anemia with hemoglobin 11.2. No other cytopenias. CMP otherwise unremarkable. Continue with current regimen. 2. Bronchitis. Script for Levaquin given. FOLLOWUP: Next week with MRI imaging. All of the above was relayed to the patient who was given an opportunity to ask questions that were answered to satisfaction. he patient voiced an understanding and agreed to proceed. Electronically Signed by Kurtis Beltre MD 10/04/2019 04:20 P DD: Kurtis Beltre MD 10/01/2019 04:41 P DT: thanh 10/04/2019 01:29 P CC:
[2019-10-11 10:46] LABS: BASO % 0.3 % (0.0-1.0); EOS # 0.1 10^3/uL (0.0-0.5); EOS % 1.6 % (0.0-3.0); HEMATOCRIT 30.7 % (42.0-52.0); HEMOGLOBIN 10.1 g/dl (13.5-17.5); LYMPH # 0.6 10^3/uL (1.5-5.0); LYMPH % 15.8 % (24.0-44.0); MEAN CORPUSCULAR HEMOGLOBIN 27.7 pg (27.0-33.0); MEAN CORPUSCULAR HGB CONC 32.9 g/dl (32.0-36.5); MEAN CORPUSCULAR VOLUME 84.1 fl (80.0-96.0); MONO # 0.7 10^3/uL (0.0-0.8); MONO % 18.7 % (0.0-5.0); NEUTROPHILS # 2.4 10^3/uL (1.5-8.5); NEUTROPHILS % 62.6 % (36.0-66.0); PLATELET COUNT, AUTOMATED 126 10^3/uL (150-450); RED BLOOD COUNT 3.65 10^6/uL (4.30-6.10); WHITE BLOOD COUNT 3.9 10^3/uL (4.0-10.0)
[2019-10-11 11:00] VITALS: BP 111/58
[2019-10-11 11:13] LABS: ALBUMIN 3.2 GM/DL (3.2-5.2); BILIRUBIN,TOTAL 0.5 MG/DL (0.2-1.0); CREATININE FOR GFR 1.33 MG/DL (0.70-1.30); POTASSIUM SERUM 4.5 MEQ/L (3.5-5.1); TOTAL PROTEIN 6.5 GM/DL (6.4-8.2)
--- NOTE | 2019-10-11 13:21 | ONC.PHACK ---
CHEMO ADMIN CHECKLIST Order Contains Pt ID: Name, Order on Chemo Order Form?: Yes Order Form Includes ALL: Correct Tx Day, Correct Date, Correct Cycle Number Pt ID on Order form Matches: Pt ID on PHA Label Med on Chemo OrderForm Matches: PHA Label, Med Used for Preparation [facility] Oct 11, 2019 13:21
[2019-10-13 08:10] VITALS: BP 103/59
[2019-10-13 08:37] LABS: ALBUMIN 3.4 GM/DL (3.2-5.2); ALT/SGPT 28 U/L (12-78); BILIRUBIN,TOTAL 0.5 MG/DL (0.2-1.0); BLOOD UREA NITROGEN 22 MG/DL (7-18); CALCIUM LEVEL 8.6 MG/DL (8.8-10.2); CARBON DIOXIDE LEVEL 30 MEQ/L (21-32); CHLORIDE LEVEL 102 MEQ/L (98-107); CREATININE FOR GFR 1.17 MG/DL (0.70-1.30); GLOMERULAR FILTRATION RATE > 60.0 (>42); GLUCOSE, FASTING 155 MG/DL (70-100); POTASSIUM SERUM 3.8 MEQ/L (3.5-5.1); SODIUM LEVEL 136 MEQ/L (136-145); TOTAL PROTEIN 7.1 GM/DL (6.4-8.2)
--- NOTE | 2019-10-14 10:09 | MEDONC ---
DATE OF SERVICE: 10/13/2019 REASON FOR FOLLOWUP: Lung cancer. DIAGNOSIS AND TREATMENT HISTORY: Per prior notes. Stage IIIA Mod to poorly differentiated adenocarcinoma left lung - cT4N3 disease, presented 07/2019 with SOB, MIGUEL mass obstructing MIGUEL bronchi on CT chest, 07/2019 PET hypermetabolic MIGUEL mass, SUV 23.3, AP window LAD 2.1 cm, SUV 19.7, sub cm right paratracheal LN SUV 2.84. 09/20/19 - concurrent chemoradiation with carboplatin/Taxol commenced. INTERVAL HISTORY: Patient returns in followup today. He is in his fourth week of concurrent chemoradiation. He also returns with his MRI brain that I ordered, which will be reviewed below. In this past week he states he has noticed some difficulty and mild discomfort on swallowing. Denies any nausea or vomiting. No other sites of pain or bleeding. Otherwise, has a good appetite and sleep. He completed Levaquin for his URI/bronchitis, states his previously reported yellow sputum is now resolved. He has a rare mucoid cough, but denies any specific issues at this time. REVIEW OF SYSTEMS: Constitutional: No fevers, no chills, no night sweats, no fatigue, no malaise, no weight loss. Cardiopulmonary: No chest pain, no SOB, no palpitations, no dizziness. No hemoptysis. Gastrointestinal: No pain, no nausea, no vomiting, no constipation, no diarrhea. No hematemesis, no melena, no hematochezia. Genitourinary: No dysuria, no hematuria, no incontinence, no frequency, no urgency. Musculoskeletal: No bony, no muscle, no joint aches. RECEIVING DOCK CHECKER: No tingling, no weakness, no numbness, no headaches, no dizziness, no seizures, no speech, no visual disturbances, All other systems, are negative unless otherwise specified in HPI. PAST MEDICAL HISTORY: CAD - CABG. Hypertension. Hyperlipidemia. Diabetes. GERD. MEDICATIONS: Reviewed in EMR. ALLERGIES: NKDA. VITAL SIGNS: Reviewed in EMR - stable. PHYSICAL EXAM: HEENT: Oral mucosa - pink and moist, no conjunctival pallor, sclera anicteric bilaterally. LYMPHATICS: Prior exam- No cervical, supraclavicular, axillary or inguinal LAD. LUNGS: Clear to auscultation bilaterally, resonant to percussion bilaterally. HEART: Regular rhythm, no murmurs, no S3/S4, no rubs. ABDOMEN: Soft, nontender, bowel sounds normoactive, no hepatosplenomegaly. EXTREMITIES: No edema bilaterally. Calves, nontender bilaterally. SKIN/NAILS: No nail changes. No petechiae/ecchymosis or other skin changes. MUSCULOSKELETAL: Spine nontender to palpation. INVESTIGATIONS: Review in EMR. ASSESSMENT/PLAN: 1. Stage IIIA moderate to poorly differentiated adenocarcinoma left lung - cT4N3 disease, presented 07/2019 with SOB, MIGUEL mass obstructing MIGUEL bronchi on CT chest, 07/2019 PET hypermetabolic MIGUEL mass, SUV 23.3, AP window LAD 2.1 cm, SUV 19.7, sub cm right paratracheal LN SUV 2.84. 09/20/19 - concurrent chemoradiation with carboplatin/Taxol commenced. Tolerating regimen well with mild XRT-esopahgitis- see below. The patient's radiation is slated to end 11/10/2019, last dose of weekly carboplatin/Taxol will be 11/08/2019. 10/01/19 MRI brain - 2-3 mm nodular enhancement left occiput lobe, concerning for metastatic lesion. Explained results to the patient and given his sub cm, asymptomatic brain met, we discussed and he was agreeable to a referral for gamma knife therapy - referred to Dr. Christianson who I spoke with. They will call the patient and set him up for a consultation. Although the patient has metastatic disease considering symptoms of airway obstruction that he presented with, he can continue with his chemotherapy and radiation for now. 2. Leukopenia and anemia - since commencing chemoradiation. No evidence of neutropenia - monitor counts, hemoglobin stable in the 10 range. 3. Radiation esophagitis. Patient also describes reflux symptoms but able to have 3 meals a day. Sent a prescription for Prilosec and Carafate slurry q.i.d. Advised the patient to call us should he have any difficulty with any further increasing difficulty or any new pain on swallowing. Advised to maintain good oral hydration. 4. Thrombocytopenia mild, new as of 10/11/2019 - 126 - secondary to chemo. Will monitor. FOLLOWUP: Weekly chemoradiation, see me 10/25/2019 for reassessment as well, sooner prn. All of the above was relayed to the patient who was given an opportunity to ask questions that were answered to satisfaction. The patient voiced an understanding and agreed to proceed. Electronically Signed by Kurtis Beltre MD 10/18/2019 05:54 P DD: Kurtis Beltre MD 10/13/2019 06:02 P DT: thanh 10/14/2019 09:37 A CC:
[2019-10-18 10:12] VITALS: BP 112/56
[2019-10-18 10:41] LABS: BASO % 0.4 % (0.0-1.0); EOS % 1.1 % (0.0-3.0); HEMATOCRIT 28.2 % (42.0-52.0); HEMOGLOBIN 9.5 g/dl (13.5-17.5); LYMPH # 0.6 10^3/uL (1.5-5.0); LYMPH % 21.3 % (24.0-44.0); MEAN CORPUSCULAR HEMOGLOBIN 28.2 pg (27.0-33.0); MEAN CORPUSCULAR HGB CONC 33.7 g/dl (32.0-36.5); MEAN CORPUSCULAR VOLUME 83.7 fl (80.0-96.0); MONO # 0.5 10^3/uL (0.0-0.8); NEUTROPHILS # 1.5 10^3/uL (1.5-8.5); NEUTROPHILS % 57.1 % (36.0-66.0); PLATELET COUNT, AUTOMATED 106 10^3/uL (150-450); RED BLOOD COUNT 3.37 10^6/uL (4.30-6.10); WHITE BLOOD COUNT 2.6 10^3/uL (4.0-10.0)
[2019-10-18 11:05] LABS: CALCIUM LEVEL 8.8 MG/DL (8.8-10.2); CREATININE FOR GFR 1.27 MG/DL (0.70-1.30); POTASSIUM SERUM 4.5 MEQ/L (3.5-5.1)
--- NOTE | 2019-10-18 11:33 | ONC.PHACK ---
CHEMO ADMIN CHECKLIST Order Contains Pt ID: Name, Order on Chemo Order Form?: Yes Order Form Includes ALL: Correct Tx Day, Correct Date, Correct Cycle Number Pt ID on Order form Matches: Pt ID on PHA Label Med on Chemo OrderForm Matches: PHA Label, Med Used for Preparation [facility] Oct 18, 2019 11:33
--- NOTE | 2019-10-19 15:22 | RADONC ---
RADIATION ONCOLOGY PROGRESS NOTE DATE OF SERVICE: 10/18/2019 CHART NUMBER: [id number] Mr. Beltre is presently a dose of 3600 cGy to his left lung and is tolerating treatments quite well at this point with no complaints related to his radiation therapy. He is having no increased difficulty swallowing or breathing. The patient's review of systems is noncontributory. Denies nausea, vomiting, fevers, chills, night sweats, diplopia, headaches, anxiety or depression, anorexia, weight loss, visual disturbances, chest pain, urinary or bowel difficulties, bone pain, or neurological problems. PHYSICAL EXAMINATION The patient's skin is in good condition with no evidence of moist or dry desquamation. The remainder of his physical exam remains unchanged. Mr. Mcdermott is tolerating his lung radiation quite well with no difficulties related to his treatments. An MRI of the brain was ordered by Dr. Beltre and revealed a 2-3 mm nodular enhancing lesion in the left occipital lobe. The patient is seen in [place] for discussion of gamma knife radiosurgery for that tiny lesion. He is scheduled for October 29 for the procedure for a solitary 2-3 mm occipital lobe lesion. In the meantime, radiation to the lung will continue as scheduled.
[2019-10-21 09:47] LABS: BASO % 0.5 % (0.0-1.0); EOS % 0.5 % (0.0-3.0); HEMATOCRIT 29.6 % (42.0-52.0); HEMOGLOBIN 9.8 g/dl (13.5-17.5); LYMPH # 0.4 10^3/uL (1.5-5.0); LYMPH % 21.5 % (24.0-44.0); MEAN CORPUSCULAR HEMOGLOBIN 27.9 pg (27.0-33.0); MEAN CORPUSCULAR HGB CONC 33.1 g/dl (32.0-36.5); MEAN CORPUSCULAR VOLUME 84.3 fl (80.0-96.0); MONO # 0.3 10^3/uL (0.0-0.8); NEUTROPHILS # 1.2 10^3/uL (1.5-8.5); RED BLOOD COUNT 3.51 10^6/uL (4.30-6.10)
[2019-10-21 09:51] LABS: PLATELET COUNT, AUTOMATED 86 10^3/uL (150-450)
[2019-10-25 10:51] VITALS: BP 104/58
[2019-10-25 10:58] LABS: BASO % 0.6 % (0.0-1.0); EOS % 1.3 % (0.0-3.0); HEMATOCRIT 28.6 % (42.0-52.0); HEMOGLOBIN 9.5 g/dl (13.5-17.5); LYMPH # 0.5 10^3/uL (1.5-5.0); LYMPH % 31.4 % (24.0-44.0); MEAN CORPUSCULAR HGB CONC 33.2 g/dl (32.0-36.5); MEAN CORPUSCULAR VOLUME 84.4 fl (80.0-96.0); MONO # 0.3 10^3/uL (0.0-0.8); MONO % 20.5 % (0.0-5.0); NEUTROPHILS # 0.7 10^3/uL (1.5-8.5); NEUTROPHILS % 46.2 % (36.0-66.0); PLATELET COUNT, AUTOMATED 99 10^3/uL (150-450); RED BLOOD COUNT 3.39 10^6/uL (4.30-6.10); WHITE BLOOD COUNT 1.6 10^3/uL (4.0-10.0)
[2019-10-25 11:26] LABS: BLOOD UREA NITROGEN 15 MG/DL (7-18); CALCIUM LEVEL 8.8 MG/DL (8.8-10.2); CARBON DIOXIDE LEVEL 28 MEQ/L (21-32); CHLORIDE LEVEL 103 MEQ/L (98-107); CREATININE FOR GFR 1.07 MG/DL (0.70-1.30); GLOMERULAR FILTRATION RATE > 60.0 (>42); GLUCOSE, FASTING 134 MG/DL (70-100); POTASSIUM SERUM 4.2 MEQ/L (3.5-5.1); SODIUM LEVEL 138 MEQ/L (136-145)
--- NOTE | 2019-10-25 14:13 | MEDONC ---
DATE OF SERVICE: 10/25/2019 REASON FOR FOLLOWUP: Lung cancer. DIAGNOSIS AND TREATMENT HISTORY: Per prior notes. Stage IIIA Mod to poorly differentiated adenocarcinoma left lung - cT4N3 disease, presented 07/2019 with SOB, MIGUEL mass obstructing MIGUEL bronchi on CT chest, 07/2019 PET hypermetabolic MIGUEL mass, SUV 23.3, AP window LAD 2.1 cm, SUV 19.7, sub cm right paratracheal LN SUV 2.84. 09/20/19 - concurrent chemoradiation w/ carboplatin/Taxol commenced. 10/01/2019 MRI brain - left occipital lobe nodular enhancement having concern for metastatic lesion - s/p gamma knife radiation 10/22/2019 at [facility]. INTERVAL HISTORY: Patient returns in followup today. He finished 5 weeks of concurrent chemoradiation, as above, completed gamma knife surgery to subcentimeter asymptomatic brain met at [facility]. Previously reported discomfort in swallowing he states resolved with Prilosec. Carafate was too expensive for him he states and he did not start this. Today he denies any pain or difficulty with swallowing. Denies any nausea or vomiting. Has a good appetite and sleep. No new sites of pain or bleeding. Denies any other complaints. REVIEW OF SYSTEMS: Constitutional: No fevers, no chills, no night sweats, no fatigue, no malaise, no weight loss. Cardiopulmonary: No chest pain, no SOB, no palpitations, no dizziness. No hemoptysis. Gastrointestinal: No pain, no nausea, no vomiting, no constipation, no diarrhea. No hematemesis, no melena, no hematochezia. Genitourinary: No dysuria, no hematuria, no incontinence, no frequency, no urgency. Musculoskeletal: No bony, no muscle, no joint aches. BONUS CLERK: No tingling, no weakness, no numbness, no headaches, no dizziness, no seizures, no speech, no visual disturbances, All other systems, are negative unless otherwise specified in HPI. PAST MEDICAL HISTORY: CAD - CABG. Hypertension. Hyperlipidemia. Diabetes. GERD. MEDICATIONS: Reviewed in EMR. ALLERGIES: NKDA. VITAL SIGNS: Reviewed in EMR - stable. PHYSICAL EXAM: HEENT: Oral mucosa - pink and moist, no conjunctival pallor, sclera anicteric bilaterally. LYMPHATICS: Prior exam- No cervical, supraclavicular, axillary or inguinal LAD. LUNGS: Clear to auscultation bilaterally, resonant to percussion bilaterally. HEART: Regular rhythm, no murmurs, no S3/S4, no rubs. ABDOMEN: Soft, nontender, bowel sounds normoactive, no hepatosplenomegaly. EXTREMITIES: No edema bilaterally. Calves, nontender bilaterally. SKIN/NAILS: No nail changes. No petechiae/ecchymosis or other skin changes. MUSCULOSKELETAL: Spine nontender to palpation. INVESTIGATIONS: Review in EMR. ASSESSMENT/PLAN: 1. Stage IIIA moderate to poorly differentiated adenocarcinoma left lung Diagnosis and treatment history as above. 09/20/19 - concurrent chemoradiation with carboplatin/Taxol commenced. Clinically tolerating chemoradiation well. Prior XRT esophagitis and reflux disease - resolved clinically with Prilosec. CBC today revealed leukopenia with neutropenia 700, anemia stable at 9.5, platelets mildly low at 99. CMP pending. Given ANC < 1000 advised we will hold off on chemotherapy today. Neutropenic precautions discussed and reiterated with the patient and . He is to also call for any temperature spikes especially a fever of 100.3 or above. Will commence Cipro prophylaxis. Discussed with Dr. Chin Benavidez regarding neutropenia today. Hold chemotherapy today for neutropenia. 2. Pancytopenia with neutropenia secondary to chemoradiation. Hold chemotherapy as above, monitor counts, neutropenic precautions initiated as above. 3. Radiation esophagitis. Patient also describes reflux symptoms having currently resolved with Prilosec. Did not commence Carafate slurry due to cost per patient. Has no odynophagia with dysphagia. Symptoms resolved. FOLLOWUP: 1 week for clinical assessment and toxicity check with CBC in 1 week on 11/01/2019. All of the above was relayed to the patient who was given an opportunity to ask questions that were answered to satisfaction. The patient voiced an understanding and agreed to proceed. Electronically Signed by Kurtis Beltre MD 10/26/2019 09:57 P DD: Kurtis Beltre MD 10/25/2019 11:21 A DT: noah 10/25/2019 01:51 P CC: Miguelangel Montalvo MD
[2019-11-01 10:30] LABS: BASO % 0.5 % (0.0-1.0); EOS % 1.6 % (0.0-3.0); HEMATOCRIT 27.3 % (42.0-52.0); HEMOGLOBIN 9.2 g/dl (13.5-17.5); LYMPH # 0.4 10^3/uL (1.5-5.0); LYMPH % 20.4 % (24.0-44.0); MEAN CORPUSCULAR HEMOGLOBIN 28.9 pg (27.0-33.0); MEAN CORPUSCULAR HGB CONC 33.7 g/dl (32.0-36.5); MEAN CORPUSCULAR VOLUME 85.8 fl (80.0-96.0); MONO # 0.4 10^3/uL (0.0-0.8); MONO % 21.5 % (0.0-5.0); NEUTROPHILS # 1.1 10^3/uL (1.5-8.5); PLATELET COUNT, AUTOMATED 113 10^3/uL (150-450); RED BLOOD COUNT 3.18 10^6/uL (4.30-6.10)
[2019-11-01 10:32] LABS: WHITE BLOOD COUNT 1.9 10^3/uL (4.0-10.0)
[2019-11-01 11:02] VITALS: BP 94/57
[2019-11-01 13:00] VITALS: BP 106/57
--- NOTE | 2019-11-01 13:36 | ONC.PHACK ---
CHEMO ADMIN CHECKLIST Order Contains Pt ID: Name, Order on Chemo Order Form?: Yes Order Form Includes ALL: Correct Tx Day, Correct Date, Correct Cycle Number Pt ID on Order form Matches: Pt ID on PHA Label Med on Chemo OrderForm Matches: PHA Label, Med Used for Preparation [facility] Nov 01, 2019 13:36
--- NOTE | 2019-11-02 10:38 | MEDONC ---
DATE OF SERVICE: 11/01/2019 REASON FOR FOLLOWUP: Lung cancer. DIAGNOSIS AND TREATMENT HISTORY: Per prior notes. Stage IIIA Mod to poorly differentiated adenocarcinoma left lung - cT4N3 disease, presented 07/2019 with SOB, MIGUEL mass obstructing MIGUEL bronchi on CT chest, 07/2019 PET hypermetabolic MIGUEL mass, SUV 23.3, AP window LAD 2.1 cm, SUV 19.7, sub cm right paratracheal LN SUV 2.84. - 09/20/19 - concurrent chemoradiation w/ carboplatin/Taxol commenced. - 10/01/2019 MRI brain - left occipital lobe nodular enhancement having concern for metastatic lesion - s/p gamma knife radiation 10/22/2019 at [facility]. INTERVAL HISTORY: Patient returns in followup today. His chemotherapy was held last week due to ANC<1000. States he continued with radiation therapy. Previously reported discomfort swallowing, had resolved with Prilosec, states he had mild discomfort during the past week, but this did not prevent him eating three square meals a day. He denies any nausea, vomiting. Has good appetite and sleep. No new sites of pain or bleeding. For the past 3 days, patient states he has had mild dizziness without any fainting spells. Denies any other complaints. REVIEW OF SYSTEMS: Constitutional: No fevers, no chills, no night sweats, no fatigue, no malaise, no weight loss. Cardiopulmonary: No chest pain, no SOB, no palpitations, dizziness. No hemoptysis. Gastrointestinal: No pain, no nausea, no vomiting, no constipation, no diarrhea. No hematemesis, no melena, no hematochezia. Genitourinary: No dysuria, no hematuria, no incontinence, no frequency, no urgency. Musculoskeletal: No bony, no muscle, no joint aches. 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 PAST MEDICAL HISTORY: CAD - CABG. Hypertension. Hyperlipidemia. Diabetes. GERD. MEDICATIONS: Reviewed in EMR. ALLERGIES: NKDA. VITAL SIGNS: Reviewed in EMR - stable. PHYSICAL EXAM: HEENT: Oral mucosa - pink and moist, no conjunctival pallor, sclera anicteric bilaterally. LYMPHATICS: Prior exam- No cervical, supraclavicular, axillary or inguinal LAD. LUNGS: Clear to auscultation bilaterally, resonant to percussion bilaterally. HEART: Regular rhythm, no murmurs, no S3/S4, no rubs. ABDOMEN: Soft, nontender, bowel sounds normoactive, no hepatosplenomegaly. EXTREMITIES: No edema bilaterally. Calves, nontender bilaterally. SKIN/NAILS: No nail changes. No petechiae/ecchymosis or other skin changes. MUSCULOSKELETAL: Spine nontender to palpation. INVESTIGATIONS: Review in EMR. ASSESSMENT/PLAN: 1. Stage IIIA moderate to poorly differentiated adenocarcinoma left lung Diagnosis and treatment history as above. 09/20/19 - concurrent chemoradiation with carboplatin/Taxol commenced. Clinically tolerating chemoradiation well. Prior XRT esophagitis and reflux disease - controlled with Prilosec. Patient could not afford Carafate so did not start this. Chemotherapy held last week with ANC 700. CBC today WBC 1.9, ANC 1100 - recovered to safe range. Hemoglobin stable 9.2, platelets stable 113. Proceed with chemotherapy, concurrent chemoradiation today. His XRT ends 11/04/2019. Return for re-evaluation next week to make up for skipped chemotherapy dosing. Has followup at [facility] with radiation oncology status post gamma knife surgery sub CM asymptomatic brain met - needs MRI brain 4-6 weeks from end of September. 2. Pancytopenia with neutropenia - secondary to chemoradiation. Neutropenia resolved as of today - proceed with chemotherapy. Remainder of CBC- stable. Continue to monitor counts. 3. Radiation esophagitis. Patient also described reflux symptoms having currently resolved with Prilosec. Did not commence Carafate slurry due to cost per patient. Symptoms under control. 4. Hypotension with mild dizziness: Patient was given IV fluid bolus 1 liter day following which his dizziness resolved and his BP improved to baseline 106/57. Following improvement of BP and symptoms, chemotherapy was commenced. FOLLOWUP: 1 week with updated CBC. All of the above was relayed to the patient who was given an opportunity to ask questions that were answered to satisfaction. The patient voiced an understanding and agreed to proceed. Electronically Signed by Kurtis Beltre MD 11/08/2019 12:51 P DD: Kurtis Beltre MD 11/01/2019 08:18 P DT: shari 11/02/2019 10:25 A CC:
[~2019-11-08] VITALS: Ht 176.5 cm; Wt 100.3 kg
[~2019-11-08 08:54] MED LIST changes: +CARBOPLATIN IV ONE; +CARBOplatin 230 MG in NS 250 ML IV ONE; +FAMOTIDINE IV BAG 20 MG in APPROPRIATE DILUENT 1 ML IV ONE; +FOSAPREPITANT PERIPHERAL LINE 30 MIN INFUSION (PREMIX) IV ONE; +FOSAPREPITANT PERIPHERAL LINE 30 MIN INFUSION IV ONE; +NS 1,000 ML IV ONE; +NS IV ONE; +PACLITAXEL IV ONE; +SODIUM CHLORIDE 0.9% INJ 10 ML SYR IV PRN; +dexameTHASONE 4 MG/ML 1ML VIAL (J1100 PER 1MG) IV ONE; +diphenhydrAMINE INJ 50MG/ML VIAL (J1200) IV ONE
[2019-11-08] MEDS ORDERED: SODIUM CHLORIDE 0.9% INJ 10 ML SYR IV PRN (10:30)
[2019-11-08 10:48] LABS: BASO % 0.4 % (0.0-1.0); EOS % 1.3 % (0.0-3.0); HEMATOCRIT 24.1 % (42.0-52.0); HEMOGLOBIN 8.3 g/dl (13.5-17.5); LYMPH # 0.4 10^3/uL (1.5-5.0); LYMPH % 16.7 % (24.0-44.0); MEAN CORPUSCULAR HEMOGLOBIN 29.7 pg (27.0-33.0); MEAN CORPUSCULAR HGB CONC 34.4 g/dl (32.0-36.5); MEAN CORPUSCULAR VOLUME 86.4 fl (80.0-96.0); MONO # 0.5 10^3/uL (0.0-0.8); MONO % 21.1 % (0.0-5.0); NEUTROPHILS # 1.3 10^3/uL (1.5-8.5); NEUTROPHILS % 58.7 % (36.0-66.0); PLATELET COUNT, AUTOMATED 139 10^3/uL (150-450); RED BLOOD COUNT 2.79 10^6/uL (4.30-6.10); WHITE BLOOD COUNT 2.3 10^3/uL (4.0-10.0)
[2019-11-08 11:06] VITALS: BP 94/59
[2019-11-08 11:21] LABS: ALBUMIN 3.4 GM/DL (3.2-5.2); ALT/SGPT 27 U/L (12-78); BILIRUBIN,TOTAL 0.9 MG/DL (0.2-1.0); BLOOD UREA NITROGEN 18 MG/DL (7-18); CALCIUM LEVEL 8.5 MG/DL (8.8-10.2); CARBON DIOXIDE LEVEL 31 MEQ/L (21-32); CHLORIDE LEVEL 106 MEQ/L (98-107); CREATININE FOR GFR 1.12 MG/DL (0.70-1.30); GLOMERULAR FILTRATION RATE > 60.0 (>42); GLUCOSE, FASTING 131 MG/DL (70-100); POTASSIUM SERUM 4.2 MEQ/L (3.5-5.1); SODIUM LEVEL 139 MEQ/L (136-145); TOTAL PROTEIN 6.7 GM/DL (6.4-8.2)
[2019-11-08] MEDS ORDERED: FAMOTIDINE IV BAG 20 MG in APPROPRIATE DILUENT 1 ML IV ONE (11:30)
[2019-11-08] MEDS ORDERED: diphenhydrAMINE INJ 50MG/ML VIAL (J1200) IV ONE (11:30)
[2019-11-08] MEDS ORDERED: dexameTHASONE 4 MG/ML 1ML VIAL (J1100 PER 1MG) IV ONE (11:30)
[2019-11-08] MEDS ORDERED: PACLITAXEL IV ONE (12:30)
[2019-11-08] MEDS ORDERED: NS IV ONE ×2 (12:30→13:30)
--- NOTE | 2019-11-08 13:11 | ONC.PHACK ---
CHEMO ADMIN CHECKLIST Order Contains Pt ID: Name, Order on Chemo Order Form?: Yes Order Form Includes ALL: Correct Tx Day, Correct Date, Correct Cycle Number Pt ID on Order form Matches: Pt ID on PHA Label Med on Chemo OrderForm Matches: PHA Label, Med Used for Preparation [facility] Nov 08, 2019 13:11
[2019-11-08] MEDS ORDERED: CARBOPLATIN IV ONE (13:30)
--- NOTE | 2019-11-09 11:24 | MEDONC ---
DATE OF SERVICE: 11/08/2019 REASON FOR FOLLOWUP: Lung cancer. DIAGNOSIS AND TREATMENT HISTORY: Per prior notes. Stage IIIA Mod to poorly differentiated adenocarcinoma left lung - cT4N3 disease, presented 07/2019 with SOB, MIGUEL mass obstructing MIGUEL bronchi on CT chest, 07/2019 PET hypermetabolic MIGUEL mass, SUV 23.3, AP window LAD 2.1 cm, SUV 19.7, sub cm right paratracheal LN SUV 2.84. - 09/20/19 - concurrent chemoradiation w/ carboplatin/Taxol commenced. - 10/01/2019 MRI brain - left occipital lobe nodular enhancement having concern for metastatic lesion - s/p gamma knife radiation 10/22/2019 at [facility]. INTERVAL HISTORY: The patient returns in followup today. Completed his last dose of radiation 11/04/2019. He has no further issues with his heartburn. No abdominal pain. He has called his primary care following his episode of mild hypotension and dizziness last week. States his antihypertension medications were adjusted. His symptoms resolve with IV fluid last week. He denies any new nausea or vomiting. Has a good appetite and sleep. No new sites of pain or bleeding. Denies any other complaints. REVIEW OF SYSTEMS: Constitutional: No fevers, no chills, no night sweats, no fatigue, no malaise, no weight loss. Cardiopulmonary: No chest pain, no SOB, no palpitations, dizziness. No hemoptysis. Gastrointestinal: No pain, no nausea, no vomiting, no constipation, no diarrhea. No hematemesis, no melena, no hematochezia. Genitourinary: No dysuria, no hematuria, no incontinence, no frequency, no urgency. Musculoskeletal: No bony, no muscle, no joint aches. SHOE CLERK: No tingling, no weakness, no numbness, no headaches, no dizziness, no seizures, no speech, no visual disturbances, All other systems, are negative unless otherwise specified in HPI. PAST MEDICAL HISTORY: CAD - CABG. Hypertension. Hyperlipidemia. Diabetes. GERD. MEDICATIONS: Reviewed in EMR. ALLERGIES: NKDA. VITAL SIGNS: Reviewed in EMR - stable. PHYSICAL EXAM: HEENT: Oral mucosa - pink and moist, no conjunctival pallor, sclera anicteric bilaterally. LYMPHATICS: Prior exam- No cervical, supraclavicular, axillary or inguinal LAD. LUNGS: Clear to auscultation bilaterally, resonant to percussion bilaterally. HEART: Regular rhythm, no murmurs, no S3/S4, no rubs. ABDOMEN: Soft, nontender, bowel sounds normoactive, no hepatosplenomegaly. EXTREMITIES: No edema bilaterally. Calves, nontender bilaterally. SKIN/NAILS: No nail changes. No petechiae/ecchymosis or other skin changes. MUSCULOSKELETAL: Spine nontender to palpation. INVESTIGATIONS: Review in EMR. ASSESSMENT/PLAN: 1. Stage IIIA moderate to poorly differentiated adenocarcinoma left lung Diagnosis and treatment history as above. 09/20/19 - concurrent chemoradiation with carboplatin/Taxol commenced. Clinically tolerating chemoradiation well. XRT completed 11/04/2019. His chemotherapy was held for neutropenia the week of 10/25/2019. CBC today. Mild cytopenias but none prohibitive. ANC 1300. Hemoglobin 8.3. Platelets 139 - proceed with last weekly dose of carbo/Taxol today. Has appointment with [facility] s/p gamma knife radiation tomorrow, 11/09/2019. Needs MRI brain 4-6 weeks from the end of September to assess treatment response. About 3 weeks following his last visit chemotherapy, we will update his CT thorax up to the level of the adrenals and a PET scan to assess treatment response. 2. Pancytopenia with neutropenia - secondary to chemoradiation. Neutropenia resolved as of today - proceed with chemotherapy. Remainder of CBC- stable. Continue to monitor counts. CBC check in 10 days. 3. Radiation esophagitis. Patient also described reflux symptoms having currently resolved with Prilosec. Did not commence Carafate slurry due to cost per patient. Symptoms under control. FOLLOW UP: 3 weeks with updated imaging, sooner p.r.n.. Electronically Signed by Kurtis Beltre MD 11/09/2019 04:59 P DD: Kurtis Beltre MD 11/08/2019 12:49 P DT: aml 11/09/2019 10:55 A CC: Miguelangel Montalvo MD
[2019-11-18] MEDS ORDERED: SODIUM CHLORIDE 0.9% INJ 10 ML SYR IV PRN (08:00)
== END 2019-11-08 10:30 | disposition home or self-care (01) ==
LOC: M ONCM 08:54
PROVIDERS: ATTEND Internal Medicine Hematology & Oncology
DX: C34.92 Malignant neoplasm of unspecified part of left bronchus or lung (principal); I25.10 Atherosclerotic heart disease of native coronary artery without angina pectoris; I10 Essential (primary) hypertension; E78.5 Hyperlipidemia, unspecified; E11.9 Type 2 diabetes mellitus without complications; Z95.1 Presence of aortocoronary bypass graft; K21.9 Gastro-esophageal reflux disease without esophagitis; Z87.891 Personal history of nicotine dependence
CPT/HCPCS: 36415; 36591; 80048; 80053; 85027; 85049; 85055; 85610; 85730; 96361; 96367; 96368; 96375; 96413; 96417; G0463; J1100; J1200; J1453; J1642; J9045; J9267